=== PATIENT | male | born 1955 ===

== ENCOUNTER 2024-09-21 05:58 | Day surgery (SDC) | payer OTHER ==
[2024-09-15 07:13] VITALS: BP 148/87
[~2024-09-21] VITALS: Ht 167.6 cm; Wt 86.2 kg
[~2024-09-21 05:58] MED LIST: AVAPRO150 MG PO; SIMVASTATIN80 MG
[2024-09-21] MEDS ORDERED: LIDOCAINE HCL 1%/EPINEPHRINE 20ML VIAL IJ ONE (12:11)
[2024-09-21] MEDS ORDERED: HEMOSTATIC MATRIX 1 KIT KIT TOP ONE (12:11)
[2024-09-21] MEDS ORDERED: DIBUCAINE 30 GM TUBE ONE (12:11)
[2024-09-21] MEDS ORDERED: POVIDONE-IODINE 118 ML BOTT TOP ONE (12:11)
[2024-09-21] MEDS ORDERED: BUPIVACAINE HCL/Mpf 0.5% 10ML VIAL ONE (12:11)
[2024-09-21] MEDS ORDERED: CEFTRIAXONE SODIUM 2,000 MG VIAL IV ONE (12:45)
[2024-09-21] MEDS ORDERED: METRONIDAZOLE/SODIUM CHLORIDE 500 MG/100 ML PIGGYBACK IV ONE ×2 (13:00)
[2024-09-21] MEDS ORDERED: CELECOXIB200 MG PO (13:16)
[2024-09-21] MEDS ORDERED: INTESTINEX680 M1 PO (13:16)
[2024-09-21] MEDS ORDERED: PERCOCET 5-3251 EACH PO (13:17)
[2024-09-21] MEDS ORDERED: NEURONTIN300 MG PO (13:17)
== END 2024-09-21 16:50 | disposition home or self-care (01) ==
LOC: CIR.AMB 05:58
PROVIDERS: ATTEND Surgery
DX: K60.321 Anal fistula, complex, initial (principal); K60.2 Anal fissure, unspecified; K62.4 Stenosis of anus and rectum; K64.1 Second degree hemorrhoids; K64.4 Residual hemorrhoidal skin tags; D12.2 Benign neoplasm of ascending colon; D12.3 Benign neoplasm of transverse colon